=== PATIENT | male | born 1965 | race Caucasian/White ===

== ENCOUNTER 2016-08-13 13:00 | Inpatient (IN) | payer OTHER ==
[2016-08-18] MEDS ORDERED: LIDOCAINE HCL 1% 20 ML VIAL SUBCUT ONE ×3 (06:54→14:06)
[2016-08-18] MEDS ORDERED: MIDAZOLAM HCL 2 MG/2 ML SYR IV ONE ×3 (06:54→14:06)
[2016-08-18] MEDS ORDERED: LACTATED RINGERS 1,000 ML IV SCH ×5 (07:00→15:00)
[2016-08-18] MEDS ORDERED: FAMOTIDINE IN SALINE, ISO-OSM 20 MG/50 ML PIGGYBACK IV SCH ×3 (07:00→14:06)
[2016-08-18] MEDS ORDERED: NORMAL SALINE FLUSH 20 ML ONE (08:55)
[2016-08-18] MEDS ORDERED: MORPHINE SULFATE/PF 10 MG/10 ML VIAL ONE (08:55)
[2016-08-18] MEDS ORDERED: KETOROLAC TROMETHAMINE 30 MG/ML VIAL ONE (08:55)
[2016-08-18] MEDS ORDERED: ROPIVACAINE HCL 0.5% 30 ML ONE ×2 (08:55→09:34)
[2016-08-18] MEDS ORDERED: BUPIVACAINE/EPI 0.25% 1 VIAL VIAL ONE (08:56)
[2016-08-18] MEDS ORDERED: ceFAZolin/DEXTROSE,ISO 2 GM/50 ML PIGGYBACK IV ONE ×3 (09:09→14:06)
[2016-08-18] MEDS ORDERED: FAMOTIDINE IN SALINE, ISO-OSM 50 ML IV ONE (09:10)
[2016-08-18] MEDS ORDERED: MIDAZOLAM HCL 2 MG/2 ML VIAL ONE (09:11)
[2016-08-18] MEDS ORDERED: ONDANSETRON HCL 4 MG/2 ML VIAL ONE (10:03)
[2016-08-18] MEDS ORDERED: FENTANYL 100 MCG/2 ML VIAL ONE ×4 (10:03→12:40)
[2016-08-18] MEDS ORDERED: DEXAMETHASONE 10 MG/ML VIAL ONE (10:03)
[2016-08-18] MEDS ORDERED: ROCURONIUM BROMIDE 50 MG/5 ML VIAL IV ONE (10:04)
[2016-08-18] MEDS ORDERED: hydrALAZINE HCL 20 MG/ML VIAL ONE (10:55)
[2016-08-18] MEDS ORDERED: LABETALOL HCL 100 MG/20 ML VIAL IV ONE (10:59)
[2016-08-18] MEDS ORDERED: BACITRACIN 50,000 UNITS VIAL IM ONE (12:18)
[2016-08-18] MEDS ORDERED: EPHEDrine SULFATE 50 MG/ML VIAL ONE (14:04)
[2016-08-18] MEDS ORDERED: FENTANYL 100 MCG/2 ML VIAL IV PRN ×2 (14:04→14:06)
[2016-08-18] MEDS ORDERED: HYDROmorphone HCL 1 MG/ML SYR IV PRN ×2 (14:04→14:06)
[2016-08-18] MEDS ORDERED: MORPHINE SULFATE 10 MG/ML SYR IV PRN ×2 (14:04→14:06)
[2016-08-18] MEDS ORDERED: ONDANSETRON HCL 4 MG/2 ML VIAL IV PRN ×3 (14:04→14:53)
--- NOTE | 2016-08-18 14:15 | HISTORY & PHYSICAL ---
DATE OF ADMISSION: 08/18/2016 ADMITTING DIAGNOSIS: Cuff tear arthropathy of the left shoulder. HISTORY OF PRESENT ILLNESS: The patient is a 50-year-old male who has a longstanding history of problems with his left shoulder. He underwent a rotator cuff repair performed elsewhere about 5 years ago. He subsequently developed recurrent shoulder pain, and reevaluation revealed a failed cuff repair with significant retraction of the rotator cuff such that inferior wall as no longer repairable. He was treated nonoperatively with physical therapy and activity modification, but continued to have increase in shoulder pain. He was noted to have a small area of degenerative change on the superior glenoid, and mild diffuse degenerative change on the humeral head as well. Due to his ongoing symptoms and failure of nonoperative management, he is being admitted for hemiarthroplasty of the left proximal humerus combined with superior capsular reconstruction. PAST MEDICAL HISTORY: His past medical history is otherwise remarkable for 1. Hypertension. 2. Psoriasis. PAST SURGICAL HISTORY: Remarkable for 1. Previous rotator cuff tear as noted above. 2. Bunion surgery. MEDICATIONS: The patient is currently not being medicated for hypertension, but he is taking tramadol and Mobic for his pain. ALLERGIES: Fluoroquinolones, erythromycin and penicillin. FAMILY HISTORY: Noncontributory. SOCIAL HISTORY: The patient is a previous smoker who quit about 10 years ago. He reports social alcohol use. REVIEW OF SYSTEMS: Review of systems is negative for any recent illness and is negative for chest pain or shortness of breath. The review of systems is otherwise noncontributory. PHYSICAL EXAMINATION GENERAL: A well-appearing male in no apparent distress, alert and oriented times 3. HEENT: NC/AT. EOMI. NECK: Supple, no adenopathy. CHEST: Heart regular rate and rhythm. LUNGS: Clear to auscultation. ABDOMEN: Soft, nontender, normoactive bowel sounds. EXTREMITIES: Exam reveals that he does have full active abduction and forward flexion of his shoulder, but considerable pain with active abduction of the shoulder. In the abductor position he has about 90 degrees external rotation and 70 degrees internal rotation. He has mild swelling about the shoulder and well healed incisional scars from his previous surgery. He is neurovascularly intact distally. X-RAY EVALUATION: An MRI of the shoulder as noted above reveals complete disruption of the supraspinatus tendon with significant retraction and fatty atrophy. Also as noted above, there are subchondral cystic changes in the very superior aspect of the glenoid, and postoperative changes in the humeral head consistent with his previous rotator cuff surgery. ASSESSMENT: Failed rotator cuff repair of the left shoulder with persistent pain, irreparable rotator cuff, and early cuff tear arthropathy. PLAN: The patient will be taken to the operating room for hemiarthroplasty of the left shoulder as well as superior capsular reconstruction. We have discussed the operation, risks and indications. The risks of the procedure include but are not limited to blood, vessel or nerve injury, infection, persistent pain or weakness in the shoulder, or failure of the capsular repair or premature failure or loosening of the hemiarthroplasty. The patient has acknowledged risks and desires to proceed as planned. JESSIKA
[2016-08-18 14:35] VITALS: RESP 16
[2016-08-18] MEDS: DEXTROSE 5% LACTATED RINGERS 1,000 ML IV SCH (16:19)
[2016-08-18] MEDS: ceFAZolin 1 GM in NORMAL SALINE MINI-BAG+ 100 ML IV SCH (16:19)
--- NOTE | 2016-08-18 17:19 | PROCEDURE NOTE: Orthopedics ---
Orthopedic Procedure note - Brief Operative Note Date of procedure: 08/18/16 Pre-Op Diagnosis: Left shoulder osteoarthritis, railed rotator cuff repair Post-op diagnosis: same Procedure: Hemiarthroplasty of left shoulder with superior capsular reconstruction. Implants: Biomet. Ref# [id number] Lot# [id number] Exp: 2025-10-10 Primary shoulder stem standard length 14mm 122mm long. [facility] [employer] ID: [id number] Code: [id number] Exp: 2019-06-26 4.0 x 7.0 cm thickness 2.50 - 3.50mm. Standard taper adaptor Ref# [id number] Lot# [id number] Exp: 2026-05-20. Versa-dial shoulder system modular head w/ variable offset 54mm x 24mm x 58mm Ref# [id number] Lot# [id number] Exp: 2023-04. Arthrex. Suture anchor Biocomposite Push lock REF# [id number] Lot# [id number] Exp: 2017-11-13 (x2). Suture [place] Biocomposite suture yusuf 3 x 14.5 mm Ref# [id number] Lot# [id number] Exp: 2016-08 (x2). Percutaneous Insertion Kit for 2.9 mm pushlock with spear, dilator, needle with stylet guide pin and drill. Ref# [id number] Lot# [id number] Exp: 2021-06-16. SpeedBridge Implant System with Biocomposite swivelock 4.75 x 19.1 mm Ref# [id number] Lot# [id number] Exp: 2018-04-15 (x1) Anesthesia Type: Block/ General Physician: YESIKA CANO Radiation Therapist: KESHAV PARIS Specimen/Pathology: none sent Sponge/instrument count: correct X-ray/Fluoroscopy: No Condition: stable Disposition: PACU
--- NOTE | 2016-08-18 17:49 | RADIOLOGY REPORT ---
A single limited portable view of the left shoulder demonstrates proximal humeral hemiarthroplasty. Component appears intact and in appropriate position. No other abnormality is identified. IMPRESSION: Left proximal humeral hemiarthroplasty. MTDD
[2016-08-18] MEDS: ACETAMINOPHEN 325 MG TABLET PO PRN (18:29)
[2016-08-18] MEDS: CELECOXIB 100 MG CAPSULE PO SCH (20:59)
[2016-08-19] MEDS: ceFAZolin 1 GM in NORMAL SALINE MINI-BAG+ 100 ML IV SCH ×2 (00:03→07:55)
[2016-08-19] MEDS: ACETAMINOPHEN 325 MG TABLET PO PRN ×4 (00:13→12:09)
[2016-08-19] MEDS: DEXTROSE 5% LACTATED RINGERS 1,000 ML IV SCH (02:14)
--- NOTE | 2016-08-19 03:28 | OPERATIVE REPORT ---
DATE OF SURGERY: 08/18/16 SURGEONS: Erick Thakur MD and Tristan Simmons MD PREOPERATIVE DIAGNOSIS: Failed rotator cuff repair of the left shoulder with subsequent cuff tear arthropathy. POSTOPERATIVE DIAGNOSIS: Failed rotator cuff repair of the left shoulder with subsequent cuff tear arthropathy. PROCEDURE PERFORMED: Hemiarthroplasty of the left shoulder and superior capsular reconstruction using allograft tissue. IMPLANTS USED: BioMet hemiarthroplasty with uncemented size 14 stem and modular head with variable offset 54 mm x 24 mm x 58 mm and multiple Arthrex suture anchors including swivel lock and push lock anchors. DESCRIPTION OF PROCEDURE: After informed consent was obtained, the patient was taken to the operating room where he was placed in the beach chair position under general anesthesia. After adequate anesthesia was achieved, the left shoulder and upper extremity were prepped and draped in the usual sterile fashion, and a long curvilinear incision was performed starting just lateral to the coracoid and extending into a position adjacent to the deltoid insertion. The underlying soft tissue was gently but carefully dissected to reveal the underlying cephalic vein. The cephalic vein was used to expose the deltopectoral interval which was then opened up. The clavipectoral fascia was then incised, and the conjoined tendon was retracted medially. This exposed the underlying subscapularis tendon which was incised approximately 1 cm medial to its insertion and then tagged with stay sutures. The humeral head was then exposed within the wound, and it was noted that he had an area of grade 4 degenerative change superiorly, and diffuse grade 3 degenerative changes on the articular surface. As expected his supraspinatus tendon was completely torn and retracted. The entry point for reaming was established by hand using a starting reamer, after which it was sequentially reamed to a size 14. The last reamer was left in place and the proximal cutting guide was placed onto the reamer and secured using pins. The reamer was then removed and the proximal cut was performed using an oscillating saw. The proximal humeral metaphysis was then sequentially broached to a size 14. Once the broach was removed, 2 drill holes were drilled into the canal for later fixation of the superior capsular graft. A #2 FiberWire suture was then placed through the drill holes in order to later capture the graft, and then the stem component was tapped into position. Attention was then focused on the glenoid at which time the medial portion of the graft was secured using 3.5 mm anchors centrally and then anteriorly and posteriorly it was secured using push lock anchors. The humeral head had already been trialed, and so at that point the Ramón taper portion of the component was carefully cleaned and dried after which the head component was tapped into position. The shoulder was reduced, and the allograft was pulled over the humeral head and secured to the lateral portion of the proximal humerus using swivel lock double row technique, with augmentation using the suture that had been placed through the drill holes. The graft was noted to be quite secure. It was then reapproximated to the infraspinatus using #2 FiberWire. The wound was then irrigated again with sterile saline and then the subscapularis tendon was repaired [id number] again using #2 FiberWire. The shoulder was moved through a range of motion and the subscapularis repair and superior capsular reconstruction were noted to be stable. The wound was irrigated one more time, and then the deltopectoral interval was reapproximated and closed using 0 Vicryl in a running fashion. The subcutaneous tissue was then closed with 2-0 Vicryl and the skin was closed using skin annabelle. The patient tolerated the injection well and was taken to the recovery room in stable condition. ESTIMATED BLOOD LOSS: 200 mL. FLUIDS: Lactated Ringers 2350 mL. MTDD
[2016-08-19 07:43] VITALS: BP 146/91; PULSE 66; TEMP 98.8; O2SAT 98
[2016-08-19] MEDS: CELECOXIB 100 MG CAPSULE PO SCH (07:59)
== END 2016-08-19 12:30 | disposition home or self-care (01) | DRG 483 ==
LOC: IN 08-18 08:32
PROVIDERS: ADMIT Orthopaedic Surgery; ATTEND Orthopaedic Surgery
PROC: 0RRK0J7 Replacement of Left Shoulder Joint with Synthetic Substitute, Glenoid Surface, Open Approach (ICD-10-PCS; principal; 2016-08-18)
PROC: 0RRK0J6 Replacement of Left Shoulder Joint with Synthetic Substitute, Humeral Surface, Open Approach (ICD-10-PCS; principal; 2016-08-18)
DX: M75.122 Complete rotator cuff tear or rupture of left shoulder, not specified as traumatic (principal); I10 Essential (primary) hypertension; L40.9 Psoriasis, unspecified; Z79.899 Other long term (current) drug therapy
CPT/HCPCS: C1713; J0171; J0360; J0690; J1100; J1885; J2250; J2405; J2795

== ENCOUNTER 2016-09-20 16:17 | Emergency (ER) | payer OTHER ==
[2016-09-20] MEDS ORDERED: KETOROLAC TROMETHAMINE 30 MG/ML VIAL ONE (16:44)
[2016-09-20] MEDS ORDERED: ONDANSETRON HCL 4 MG/2 ML VIAL ONE (16:44)
[2016-09-20] MEDS ORDERED: MORPHINE SULFATE 4 MG/ML SYR ONE (16:45)
--- NOTE | 2016-09-20 17:38 | CT REPORT ---
HISTORY: Right flank pain COMPARISON: None. TECHNIQUE: This examination was performed using automated exposure control, adjustment of mA or kV according to patient size, and/or use of iterative reconstruction technique. Axial contiguous images of the abdome n and pelvis were obtained without oral or IV contrast, coronal reformat images also performed. FINDINGS: There is mild bibasal atelectasis. No pleural effusion is demonstrated. The liver, gallbladder, and bile ducts appear unremarkable. Spleen, pancreas, and adrenal glands are normal. The abdominal aorta is normal in caliber. There is a 4 mm nonobstructing calculus in the mid posterior right kidney. Mild right hydronephrosis and right ureteral dilatation or caused by a 3 mm calculus in the distal right ureter, just superior to the ureterovesical junction. There is a 2 mm nonobstructing calculus in the mid left kidney. The l eft ureter and urinary bladder unremarkable. The bowel is grossly normal. The appendix is normal. There is no free fluid or free air. The prostate gland is mildly enlarged and contains calcifications. Grade 1 L5-S1 spondylolisthesis is caused by bilateral L5 spondylolysis is also severe degenerative d isc disease at that level. Disc degeneration is also severe at L1-2. There are minimal anterior degen erative subluxation of L3 on L2, L4 and L3, and L5 on L4. IMPRESSION: 1. 3 mm acutely obstructing calculus in the distal right ureter, just superior to the ureterovesical junction. 2. Bilateral nonobstructing nephrolithiasis. 3. Grade 1 L5-S1 spondylolisthesis, caused by bilateral L5 spondylolysis. Multilevel degenerative sub luxations in the lumbar spine. Final Electronic Signature: This report was electronically signed by Shawn Nicolas MD on 09/20/2016 5:36 PM. kathi /
[2016-09-20] MEDS ORDERED: TAMSULOSIN HCL 0.4 MG CAPSULE PO ONE (18:03)
[2016-09-20] MEDS ORDERED: oxyCODONE/APAP 5/325 MG PREPAC 1 TAB TABLET PO ONE (18:03)
--- NOTE | 2016-09-20 18:20 | ER NURSING DOCUMENTATION ---
Nurse's Notes [facility] Name:Cuab Howell Age:50 yrs Sex:Male :1965 Arrival Date:09/20/2016 Time:16:17 Bed4 Private MD:Miguel Angel Medina Diagnosis:Kidney Stone w/ Colic;Dehydration Presentation: 09/20 16:23 Acuity: ISAMAR 3 tg Triage Assessment: 17:34 General: Appears distressed, well developed, well nourished, well groomed, Behavior is sc1 cooperative. Pain: Complains of pain in right mid back. Historical: - Allergies: PENICILLINS; Cipro PO; Erythromycin; - Home Meds: 1. Tramadol Oral 2. meloxicam oral 3. Vicodin - PSHx: SHOULDER SURGERY; thumb; - Ebola Screening: : Patient negative for fever greater than or equal to 101.5 degrees Fahrenheit, and additional compatible Ebola Virus Disease symptoms. Patient denies exposure to infectious person. Patient denies travel to an Ebola-affected area in the 21 days before illness onset. No symptoms or risks identified at this time. . - Immunization history: Pneumococcal vaccine is not up to date, Flu Vaccine < 1 year. - Social history: Smoking status: Patient states former smoker of tobacco. Patient uses alcohol Patient/guardian denies using street drugs, IV drugs, marijuana. Screenin:04 Infectious Disease Risk None. Abuse screen: Denies threats or abuse. Nutritional sc1 screening: No deficits noted. Vital Signs: 16:23 BP 194 / 95 RA Sitting (auto/reg); Pulse 50 RA; Resp 22 S; Temp 98.4(O); Pulse Ox 100% em3 on R/A; Weight 68.04 kg (R); Height 5 ft. 8 in. (172.72 cm) (R); Pain 7/10; 17:05 BP 178 / 95; Pulse 90; Resp 20; Pulse Ox 87% on R/A; sc1 17:46 BP 193 / 96; Pulse 46; Resp 16; Pulse Ox 100% on 2 lpm NC; sc1 16:23 Body Mass Index 22.81 (68.04 kg, 172.72 cm) em3 ED Course: 16:20 Patient arrived in ED. arc 16:20 Miguel Angel Medina MD is Private Physician. arc 16:23 Triage completed. tg 16:23 Juan Luis Jaramillo MD is Attending Physician. 16:25 Valuables Remains with patient Patient has correct armband on for positive em3 identification. Placed in gown. Bed in low position. Call light in reach. Side rails up X 1. 16:31 Jyoti Lee RN is Primary Nurse. sc1 16:35 Missed attempts: 20 gauge X 2 in left hand, in left antecubital area. arc 17:04 Inserted peripheral IV: 18 gauge in right forearm and blood collected. sc1 17:[address] pm1 17:05 Pulse ox on. NIBP on. sc1 17:06 Oxygen Oxygen administration via nasal cannula @ 2L/min. ri1 17:19 CAT SCAN; [place] [id number] In Process Unspecified. EDMS 17:21 Patient moved back from [address]. pm1 17:57 Erick Espinoza MD is Referral Physician. Administered Medications: 16:50 Drug: morphine 4 mg; Route: IVP; Site: [place] forearm; [facility] [place] 16:50 Drug: Zofran 4 mg; Route: IVP; Infused Over: 2 mins; Site: right forearm; [facility] [place] 17:00 Drug: Toradol 30 mg; Route: IVP; Rate: bolus; Site: right forearm; ri1 17:02 Drug: NS 0.9% 1000 ml; Route: IV; Rate: bolus; Site: right forearm; Delivery: [place] [facility] [place] Tub[place]; 18:19 Drug: Zofran 4 mg; Route: PO; ri1 Point of Care Testing: Urine Dip: 17:33 pH: 6.0; ; Specific [place]: 1.020; Ketones: Negative; Glucose: Negative; Protein: ri1 Negative; Leukocytes: Negative; Nitrite: Negative ; Blood: Large (+++); Bilirubin: Negative ; Urobilinogen: Normal Outcome: 17:59 Discharge ordered by . michael 18:19 Patient left the ED. [facility] [place] 05/08 12:55 Discharge F/U Call: Spoke with: patient. Overall Care on a scale of 1-10 with 10 tg being the best care, you rate our care as: Other comments: Pt feeling better, passed stone today Signatures: Dispatcher [employer] EDJesus Smith RN RN Jyoti Lee RN RN sc1 Juan Luis Jaramillo MD MD jm McBride, Philisha pm1 Oziel Malone em3 Yanira Murillo, Reg Reg arc
--- NOTE | 2016-09-20 18:20 | ER PHYSICIAN DOCUMENTATION ---
Physician Documentation [facility] Name:Cuba Howell Age:50 yrs Sex:Male :1965 Arrival Date:09/20/2016 Time:16:17 Bed4 Private MD:Miguel Angel Medina EDJuan Luis Jaramillo Disposition: 09/20/16 17:59 Discharged to Home/Self Care. Impression: Kidney Stone w/ Colic, Dehydration. - Condition is Good. - Discharge Instructions: KIDNEY STONE w/ Colic. - Prescriptions for Percocet 5- 325 mg Oral Tablet - take 1 tablet by ORAL route every 6 hours As needed; 20 tablet. Zofran 4 mg Oral Tablet - take 1 tablet by ORAL route every 12 hours; 6 tablet. Flomax 0.4 mg Oral - take 1 capsule by ORAL route once daily 1/2 hour following the same meal each day; 14 capsule. - Medical Reconciliation form form. - Follow up: Erick Espinoza MD; When: 10/05/2016; Reason: Continuance of care. - Problem is new. - Symptoms have improved. HPI: 09/20 16:46 This 50 yrs old Male presents to ER with complaints of Flank Pain. jm 16:46 The patient complains of pain in the right mid back. The pain does not radiate. Onset: jm The symptom(s)/episode began/occurred today, 3 hour(s) ago. Modifying factors: The symptoms are alleviated by nothing. Associated signs and symptoms: Pertinent positives: nausea, vomiting. Severity of pain: in the emergency department the pain is a 9 / 10. The patient has not experienced similar symptoms in the past. The patient has not recently seen a physician. Pt had sudden on set flank pain for the the past 3 hours. Pt has taken left over tramadol w/o any relief. . Historical: - Allergies: PENICILLINS; Cipro PO; Erythromycin; - Home Meds: 1. Tramadol Oral 2. meloxicam oral 3. Vicodin - PSHx: SHOULDER SURGERY; thumb; - Ebola Screening: : Patient negative for fever greater than or equal to 101.5 degrees Fahrenheit, and additional compatible Ebola Virus Disease symptoms. Patient denies exposure to infectious person. Patient denies travel to an Ebola-affected area in the 21 days before illness onset. No symptoms or risks identified at this time. . - Immunization history: Pneumococcal vaccine is not up to date, Flu Vaccine < 1 year. - Social history: Smoking status: Patient states former smoker of tobacco. Patient uses alcohol Patient/guardian denies using street drugs, IV drugs, marijuana. ROS: 16:47 Constitutional: Negative for fatigue, fever. jm 16:47 Neck: Negative for injury or acute deformity. 16:47 Abdomen/GI: Positive for nausea, vomiting, Negative for abdominal pain. 16:47 Back: Positive for pain at rest, pain with movement. 16:47 : Positive for flank pain. 16:47 All other systems are negative. Exam: 16:48 Constitutional: The patient appears alert, awake, anxious, in obvious distress, mildly jm distressed. 16:48 Eyes: Periorbital structures: appear normal, Conjunctiva: normal. 16:48 ENT: Mouth: is normal, Voice: is normal. 16:48 Cardiovascular: Rate: normal, Rhythm: regular. 16:48 Respiratory: Respirations: normal, Breath sounds: are normal. 16:48 Abdomen/GI: Bowel sounds: normal, Palpation: abdomen is soft and non-tender. 16:48 Back: pain, that is severe, CVA tenderness, that is severe, is noted on the right. 16:48 : CVA tenderness, that is severe, Bladder: is normal. 16:48 Skin: injury, is not appreciated, no rash present. 16:48 Neuro: Mentation: is normal, Motor: is normal. 16:48 Psych: Behavior/mood is pleasant, cooperative, Affect is calm. Vital Signs: 16:23 BP 194 / 95 RA Sitting (auto/reg); Pulse 50 RA; Resp 22 S; Temp 98.4(O); Pulse Ox 100% em3 on R/A; Weight 68.04 kg (R); Height 5 ft. 8 in. (172.72 cm) (R); Pain 7/10; 17:05 BP 178 / 95; Pulse 90; Resp 20; Pulse Ox 87% on R/A; sc1 17:46 BP 193 / 96; Pulse 46; Resp 16; Pulse Ox 100% on 2 lpm NC; sc1 16:23 Body Mass Index 22.81 (68.04 kg, 172.72 cm) em3 MDM: 16:23 Patient medically screened. 16:49 Differential diagnosis: nephrolithiasis, pyelonephritis. Data reviewed: vital signs, nurses notes, lab test result(s), radiologic studies, and as a result, I will. 18:21 Counseling: I had a detailed discussion with the patient and/or guardian regarding: the historical points, exam findings, and any diagnostic results supporting the discharge/admit diagnosis, lab results, radiology results, the need for outpatient follow up, with the patient's primary care provider, a urologist. Response to treatment: the patient's symptoms have markedly improved after treatment. ED course: CT report read. Pt has 3mm stone in IVJ. Pt will go home w pecocet, zofran, and flomax. . 09/20 17:19 Order name: CAT SCAN; [place]BD/[place] [id number] EDIA 09/20 16:32 Order name: Iv Saline Lock; Complete Time: 17:03 09/20 17:03 Order name: Oxygen; Complete Time: 17:04 ny1 09/20 17:03 Order name: Oxygen Sats; Complete Time: 17:04 [facility] [place] Medications: 16:50 Drug: morphine 4 mg; Route: IVP; Site: right forearm; ny1 16:50 Drug: Zofran 4 mg; Route: IVP; Infused Over: 2 mins; Site: right forearm; sc1 17:00 Drug: Toradol 30 mg; Route: IVP; Rate: bolus; Site: right forearm; sc1 17:02 Drug: NS 0.9% 1000 ml; Route: IV; Rate: bolus; Site: right forearm; Delivery: [place] sc1 Tubing; 18:19 Drug: Zofran 4 mg; Route: PO; ny1 Point of Care Testing: Urine Dip: 17:33 pH: 6.0; ; Specific [place]: 1.020; Ketones: Negative; Glucose: Negative; Protein: sc1 Negative; Leukocytes: Negative; Nitrite: Negative ; Blood: Large (+++); Bilirubin: Negative ; Urobilinogen: Normal Signatures: Jyoti Lee, RN RN ny1 Juan Luis Jaramillo MD MD
[2016-09-20] MEDS ORDERED: ONDANSETRON ODT 4 MG TAB.RAPDIS ONE (18:24)
== END 2016-09-20 18:20 | disposition home or self-care (01) ==
LOC: ER 16:17
DX: N20.0 Calculus of kidney (principal); N23 Unspecified renal colic; E86.0 Dehydration; R11.2 Nausea with vomiting, unspecified; Z79.899 Other long term (current) drug therapy
CPT/HCPCS: 74176; 96374; 96375; 99285; J1885; J2270; J2405